=== PATIENT | female | born 1950 | race Caucasian/White ===

== ENCOUNTER → 2021-11-25 | Outpatient (CLI) | payer MEDICARE, OTHER | LOC: KOH-I 09:57 | DX: M79.672 Pain in left foot (principal) | CPT/HCPCS: 73630 ==

== ENCOUNTER 2022-04-07 22:21 | Inpatient (IN) | payer MEDICARE, OTHER ==
[~2022-04-07] VITALS: Ht 162.6 cm; Wt 75.3 kg
[2022-04-07 23:40] LABS: HEMOGLOBIN 15.5 gm/dl (12.3-15.3); RED BLOOD COUNT 4.95 M/UL (4.00-5.10); WHITE BLOOD COUNT 6.1 K/UL (4.5-11.0)
[2022-04-08 00:34] LABS: BUN/CREATININE RATIO 32 (0-10)
[2022-04-08 06:51] LABS: HEMOGLOBIN 13.7 gm/dl (12.3-15.3); RED BLOOD COUNT 4.47 M/UL (4.00-5.10); WHITE BLOOD COUNT 4.8 K/UL (4.5-11.0)
[2022-04-08 07:17] LABS: BUN/CREATININE RATIO 29 (0-10)
[2022-04-08] MEDS ORDERED: HYGROTON TAB 2525 MG PO (08:56)
[2022-04-08] MEDS ORDERED: SINGULAIR10 MG PO (08:59)
[2022-04-08] MEDS ORDERED: ESOMEPRAZOLE MA20 MG PO (09:00)
[2022-04-08] MEDS ORDERED: LISINOPRIL20 MG PO (09:00)
[2022-04-08] MEDS ORDERED: MACROBID 100 M100 MG PO (09:03)
[2022-04-08] MEDS ORDERED: COREG 25MG TAB25 MG PO (09:03)
[2022-04-08] MEDS ORDERED: NORVASC5 MG PO (09:05)
[2022-04-08] MEDS ORDERED: MELATONIN5 MG PO (09:13)
[2022-04-08] MEDS ORDERED: CATAPRES-TTS 21 EACH TP (09:13)
[2022-04-08] MEDS ORDERED: CALTRATE 600+D1 EAC2 PO (09:14)
[2022-04-08] MEDS ORDERED: CENTRUM SILVER1 EAC1 PO (09:14)
[2022-04-08] MEDS ORDERED: TURMERIC CURCU1 EACH PO (09:15)
[2022-04-08] MEDS ORDERED: OMEGA 3 FISH O1 EACH PO (09:15)
[2022-04-08 19:04] LABS: BUN/CREATININE RATIO 35 (0-10)
[2022-04-08 22:18] LABS: BUN/CREATININE RATIO 36 (0-10)
[2022-04-09 02:16] LABS: HEMOGLOBIN 13.3 gm/dl (12.3-15.3); RED BLOOD COUNT 4.31 M/UL (4.00-5.10)
[2022-04-09 02:22] LABS: WHITE BLOOD COUNT 7.5 K/UL (4.5-11.0)
[2022-04-09 02:28] LABS: BUN/CREATININE RATIO 29 (0-10)
[2022-04-09 05:53] LABS: BUN/CREATININE RATIO 31 (0-10)
[2022-04-09 15:46] LABS: BUN/CREATININE RATIO 30 (0-10)
[2022-04-09 22:08] LABS: BUN/CREATININE RATIO 30 (0-10)
[2022-04-10 03:49] LABS: HEMOGLOBIN 13.1 gm/dl (12.3-15.3); RED BLOOD COUNT 4.25 M/UL (4.00-5.10); WHITE BLOOD COUNT 5.8 K/UL (4.5-11.0)
[2022-04-10 04:29] LABS: BUN/CREATININE RATIO 22 (0-10)
== END 2022-04-10 09:48 | disposition home or self-care (01) | DRG 640 ==
LOC: ER1 22:21 → PROG CARE 04-08 04:44 → CDU 04-08 04:44 → PROG CARE 04-08 17:25
PROVIDERS: Internal Medicine; Internal Medicine Nephrology; Student in an Organized Health Care Education/Training Program; ADMIT Internal Medicine
DX: E87.1 Hypo-osmolality and hyponatremia (principal); U07.1 COVID-19; R26.81 Unsteadiness on feet; T50.2X5A Adverse effect of carbonic-anhydrase inhibitors, benzothiadiazides and other diuretics, initial encounter; I10 Essential (primary) hypertension; K21.9 Gastro-esophageal reflux disease without esophagitis; Z96.653 Presence of artificial knee joint, bilateral; Z85.3 Personal history of malignant neoplasm of breast; Z88.8 Allergy status to other drugs, medicaments and biological substances; Z88.6 Allergy status to analgesic agent
CPT/HCPCS: 0240U; 36415; 71046; 80048; 80053; 82550; 82553; 82962; 83605; 83735; 83880; 84100; 84484; 85025; 85027; 99284; J7040